=== PATIENT | male | born 1945 | race Caucasian/White ===

== ENCOUNTER → 2017-02-19 | Outpatient (CLI) | payer OTHER ==
[~2017-02-19] MED LIST: WILL BRING DOS
[2017-02-19 15:48] LABS: HEMATOCRIT 49.2 % (39.2-51.8); WHITE BLOOD COUNT 8.6 x10^3/uL (3.4-10)
[2017-02-19 15:59] LABS: ASPARTATE AMINO TRANSFERASE 38 U/L (15-37); BLOOD UREA NITROGEN 33 mg/dL (7-18)
[2017-02-19 16:11] LABS: HIV 1&2 ANTIBODY SCREEN Nonreactive (Nonreactive)
[2017-02-19 16:12] LABS: HIV-1 p24 ANTIGEN Nonreactive (Nonreactive)
== END | disposition home or self-care (01) ==
LOC: STAR 14:54
PROVIDERS: ATTEND Orthopaedic Surgery
DX: Z01.818 Encounter for other preprocedural examination (principal); R94.31 Abnormal electrocardiogram [ECG] [EKG]; M16.12 Unilateral primary osteoarthritis, left hip; R79.1 Abnormal coagulation profile; R79.89 Other specified abnormal findings of blood chemistry
CPT/HCPCS: 36415; 80053; 83036; 85025; 85610; 85730; 86703; 87081; 87899; 93005; G0435

== ENCOUNTER → 2018-08-30 | Outpatient (CLI) | payer MEDICARE ==
[~2018-08-30] MED LIST changes: +AMIO200T42 PO; +AMLO10TA8 PO; +CARV-39 PO; +CELE200C PO; +DIAZ5TAB PO; +DOCU-131 PO; +HYDR25TA6 PO; +LISI-170 PO; +ONDA4TAB10 PO; +OXYC5CAP2 PO; +TRAM50TA2 PO; +WARF-36 PO; +WARF2.5T32 PO
== END | disposition home or self-care (01) ==
LOC: CFH 10:31
PROVIDERS: ATTEND Internal Medicine Cardiovascular Disease
DX: I48.0 Paroxysmal atrial fibrillation (principal); E78.2 Mixed hyperlipidemia; I10 Essential (primary) hypertension; I25.10 Atherosclerotic heart disease of native coronary artery without angina pectoris; I42.9 Cardiomyopathy, unspecified; F17.210 Nicotine dependence, cigarettes, uncomplicated
CPT/HCPCS: 71046

== ENCOUNTER → 2018-09-07 | Outpatient (CLI) | payer MEDICARE | END | disposition home or self-care (01) | LOC: CFH 13:44 | PROVIDERS: ATTEND Internal Medicine Cardiovascular Disease | DX: I42.9 Cardiomyopathy, unspecified (principal); I10 Essential (primary) hypertension; F17.210 Nicotine dependence, cigarettes, uncomplicated | CPT/HCPCS: 93306 ==

== ENCOUNTER → 2019-04-27 | Outpatient (CLI) | payer MEDICARE ==
[~2019-04-27] MED LIST changes: +GADOTERATE 10 MMOL/20 ML VIAL ONE
== END | disposition home or self-care (01) ==
LOC: CFH 08:55
PROVIDERS: ATTEND Physician Assistant
DX: K76.89 Other specified diseases of liver (principal); N26.1 Atrophy of kidney (terminal); E83.119 Hemochromatosis, unspecified; F17.200 Nicotine dependence, unspecified, uncomplicated; I48.91 Unspecified atrial fibrillation; J44.9 Chronic obstructive pulmonary disease, unspecified; E78.5 Hyperlipidemia, unspecified; M19.90 Unspecified osteoarthritis, unspecified site; N18.9 Chronic kidney disease, unspecified; N28.1 Cyst of kidney, acquired
CPT/HCPCS: 74183; A9575

== ENCOUNTER 2019-05-20 06:42 | Day surgery (SDC) | payer MEDICARE ==
[~2019-05-20] VITALS: Ht 167.6 cm; Wt 81.7 kg
[~2019-05-20 06:42] MED LIST changes: -GADOTERATE 10 MMOL/20 ML VIAL ONE
[2019-05-20 07:42] VITALS: BP 173/91
[2019-05-20] MEDS ORDERED: ATOR10TA9 PO (07:48)
[2019-05-20] MEDS ORDERED: SODIUM CHLORIDE 0.9% 1,000 ML IV SCH (07:51)
[2019-05-20 08:00] LABS: INTERNATIONAL NORMALIZED RATIO 1.09 (0.93-1.1); PROTHROMBIN TIME 11.4 Seconds (9.6-11.5)
[2019-05-20] MEDS ORDERED: FENTANYL PF 100 MCG/2ML ONE (08:50)
[2019-05-20] MEDS ORDERED: MIDAZOLAM 1 MG/ML, 5ML ONE ×2 (08:50→08:51)
[2019-05-20] MEDS ORDERED: FLUMAZENIL 0.1 MG/1 ML, 5ML ONE (08:51)
[2019-05-20] MEDS ORDERED: NALOXONE 1 MG/ML, 2ML ONE (08:51)
== END 2019-05-20 10:30 | disposition home or self-care (01) ==
LOC: OUT 06:42 → EDSTATUS 09:00 → OUT 10:30
PROVIDERS: ATTEND Physician Assistant
DX: R16.0 Hepatomegaly, not elsewhere classified (principal); E83.19 Other disorders of iron metabolism; K74.60 Unspecified cirrhosis of liver; I48.91 Unspecified atrial fibrillation; I10 Essential (primary) hypertension; J43.9 Emphysema, unspecified; I25.2 Old myocardial infarction; F17.200 Nicotine dependence, unspecified, uncomplicated; Z79.01 Long term (current) use of anticoagulants
CPT/HCPCS: 36415; 47000; 77012; 85610; 88307; 88313; 88341; 88342; 99156; 99157; J2250; J3010; J7030; J2310

== ENCOUNTER → 2019-09-23 | Outpatient (CLI) | payer MEDICARE ==
[~2019-09-23] MED LIST changes: +ATOR10TA9 PO; +LIDOCAINE-MPF 1%, 5ML ONE
== END | disposition home or self-care (01) ==
LOC: PETCFH 07:07
PROVIDERS: ATTEND Physician Assistant
DX: K80.20 Calculus of gallbladder without cholecystitis without obstruction (principal); I71.9 Aortic aneurysm of unspecified site, without rupture; J98.11 Atelectasis; K76.89 Other specified diseases of liver; N26.1 Atrophy of kidney (terminal)
CPT/HCPCS: 78815; A9552

== ENCOUNTER 2019-11-10 11:02 | Outpatient (CLI) | payer MEDICARE ==
[~2019-11-10 11:02] MED LIST changes: -LIDOCAINE-MPF 1%, 5ML ONE
[2019-11-10] MEDS ORDERED: OMNIPAQUE 350 MG/ML, 100ML BOTTLE ONE (15:11)
== END 2019-11-10 23:59 | disposition home or self-care (01) ==
LOC: CFH 11:02
PROVIDERS: ATTEND Physician Assistant
DX: K80.20 Calculus of gallbladder without cholecystitis without obstruction (principal); N26.1 Atrophy of kidney (terminal); J84.9 Interstitial pulmonary disease, unspecified; I25.10 Atherosclerotic heart disease of native coronary artery without angina pectoris; R77.2 Abnormality of alphafetoprotein; R16.0 Hepatomegaly, not elsewhere classified; I71.9 Aortic aneurysm of unspecified site, without rupture
CPT/HCPCS: 74170; Q9967